=== PATIENT | female | born 1965 | race Caucasian/White ===

== ENCOUNTER 2018-11-14 15:03 | Emergency (ER) | payer SELFPAY ==
[~2018-11-14] VITALS: Ht 172.7 cm; Wt 81.6 kg
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
[2018-11-14] MEDS ORDERED: LORazepam INJ 2 MG/ML (ATIVAN) VIAL IVP ONE (15:30)
[2018-11-14 16:03] LABS: WHITE BLOOD COUNT 6.7 10^3/uL (4.3-11.0)
[2018-11-14 16:04] LABS: BASOPHILS % (AUTO) 0 % (0-10); EOSINOPHILS # (AUTO) 0.1 10^3/uL (0.0-0.3); EOSINOPHILS % (AUTO) 1 % (0-10); HEMATOCRIT 40 % (35-52); HEMOGLOBIN 13.1 G/DL (11.5-16.0); LYMPHOCYTES # (AUTO) 2.7 X 10^3 (1.0-4.0); LYMPHOCYTES % (AUTO) 40 % (12-44); MEAN CORPUSCULAR HEMOGLOBIN 29 PG (25-34); MEAN CORPUSCULAR HGB CONC 33 G/DL (32-36); MEAN CORPUSCULAR VOLUME 90 FL (80-99); MEAN PLATELET VOLUME 11.5 FL (7.4-10.4); MONOCYTES # (AUTO) 0.7 X 10^3 (0.0-1.0); MONOCYTES % (AUTO) 11 % (0-12); NEUTROPHILS # (AUTO) 3.3 X 10^3 (1.8-7.8); NEUTROPHILS % (AUTO) 48 % (42-75); PLATELET COUNT 170 10^3/uL (130-400); RED CELL DISTRIBUTION WIDTH 14.6 % (10.0-14.5)
--- NOTE | 2018-11-14 16:05 | Diagnostic Imaging Report ---
PROCEDURE: CT head and CT cervical spine without contrast. TECHNIQUE: Multiple contiguous axial images were obtained through the brain and cervical spine without the use of intravenous contrast. Sagittal and coronal reformations through the cervical spine were then performed. INDICATION: Seizure, head and neck pain. There are no prior studies available for comparison. FINDINGS: CT HEAD: There is no mass, shift of midline or hemorrhage to suggest an acute intracranial abnormality. The ventricles are not abnormally dilated. There is cortical atrophy present. The degree of atrophy is consistent with the patient's age. The bone windows show no sign of a fracture or for destructive lesion. The orbits and sinuses were not visualized in their entirety. The orbits are generally unremarkable. There is mucosal thickening and fluid within the left maxillary antrum, however. IMPRESSION: 1. There is no evidence for an acute intracranial abnormality. 2. If clinical concern regarding an underlying abnormality persists, MRI would be recommended for further study. 3. There is left maxillary sinusitis. CT CERVICAL SPINE: The reconstructed parasagittal images show the vertebral body heights and alignment to be generally within normal limits. The intervertebral disc spaces are fairly well-maintained. There is a disc bulge essentially at C5-C6. There does not appear be any significant central stenosis at this level. The remainder of the cervical spine is unremarkable for a high-grade central stenosis. There is no fracture or acute bony abnormality identified. The lung apices are clear. The thyroid gland is unremarkable. There is no sign of retropharyngeal edema. IMPRESSION: There is no acute bony abnormality of the cervical spine. Dictated by: Dictated on workstation # [id number]
[2018-11-14 16:19] LABS: POTASSIUM 4.4 MMOL/L (3.6-5.0)
[2018-11-14 16:20] LABS: ALBUMIN 4.1 GM/DL (3.2-4.5); BILIRUBIN,TOTAL 0.3 MG/DL (0.1-1.0); CALCIUM 8.7 MG/DL (8.5-10.1); CREATININE SERUM 2.1 MG/DL (0.60-1.30); TOTAL PROTEIN 6.9 GM/DL (6.4-8.2)
[2018-11-14] MEDS ORDERED: HYDROcodone/APAP 5 MG/325 MG (LORTAB) TAB PO STA (17:05)
[2018-11-14] MEDS ORDERED: ACHD5005 PO (17:09)
[2018-11-14] MEDS ORDERED: CLON1TAB PO (17:09)
[2018-11-14] MEDS ORDERED: HYDROcodone/APAP 5 MG/325 MG (LORTAB) TAB ONE (17:09)
[2018-11-14 17:19] VITALS: BP 159/95
== END 2018-11-14 17:20 | disposition home or self-care (01) ==
LOC: ER FS 15:06
DX: S16.1XXA Strain of muscle, fascia and tendon at neck level, initial encounter (principal); N28.9 Disorder of kidney and ureter, unspecified; F41.9 Anxiety disorder, unspecified; Y04.0XXA Assault by unarmed brawl or fight, initial encounter
CPT/HCPCS: 36415; 70450; 72125; 80053; 85025

== ENCOUNTER 2018-11-16 20:10 | Emergency (ER) | payer OTHER ==
[~2018-11-16] VITALS: Ht 152.4 cm; Wt 70.3 kg
[~2018-11-16 20:10] MED LIST: ACHD5005 PO; CLON1TAB PO
[2018-11-16 21:23] VITALS: BP 177/82
== END 2018-11-16 22:20 | disposition left against medical advice (07) ==
LOC: EDUNIT# 20:10 → ER FS 20:12
DX: R19.7 Diarrhea, unspecified (principal); R11.10 Vomiting, unspecified; R10.9 Unspecified abdominal pain; E86.0 Dehydration
CPT/HCPCS: 99281